=== PATIENT | female | born 2000 | race Caucasian/White ===

== ENCOUNTER 2020-06-22 22:01 | Emergency (ER) | payer OTHER, BC, SELFPAY ==
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
[2020-06-22 22:03] VITALS: BP 122/96; PULSE 81; RESP 20; TEMP 35.9; O2SAT 100
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
[2020-06-22] MEDS: HYDROcodone/acetaminophen (*CRX) 5-325 MG TABLET 1 TAB PO (23:15)
[2020-06-23 00:22] VITALS: BP 119/71; PULSE 78; RESP 16; O2SAT 99
== END 2020-06-23 00:20 | disposition home or self-care (01) ==
PROVIDERS: Emergency Provider Emergency Medicine
DX: S16.1XXA Strain of muscle, fascia and tendon at neck level, initial encounter (principal); S39.92XA Unspecified injury of lower back, initial encounter; V43.52XA Car driver injured in collision with other type car in traffic accident, initial encounter
CPT/HCPCS: 71046; 72110; 72125; 81025; 99284; A9270